=== PATIENT | female | born 1960 | race Caucasian/White ===

== ENCOUNTER 2016-12-24 06:14 | Day surgery (SDC) | payer MEDICAID ==
[~2016-12-24] VITALS: Ht 154.9 cm; Wt 75.7 kg
[2016-12-24] MEDS ORDERED: LISI5TAB18 PO (07:11)
[2016-12-24] MEDS ORDERED: GEMF600T5 PO (07:11)
[2016-12-24] MEDS ORDERED: METF850T PO (07:11)
[2016-12-24] MEDS ORDERED: fentaNYL 0.05 MG/ML VIAL ONE (07:24)
[2016-12-24] MEDS ORDERED: LIDOCAINE 2% 100 MG/5 ML UJET TP ONE (07:25)
[2016-12-24] MEDS ORDERED: MIDAZOLAM 2 MG/2 ML VIAL ONE (08:15)
[2016-12-24] MEDS ORDERED: EPINEPHrine PFS 0.1 MG/ML SYR IVP ONE (10:00)
[2016-12-24] MEDS ORDERED: MIDAZOLAM 2 MG/2 ML VIAL IVP ONE (10:05)
[2016-12-24] MEDS ORDERED: COMMUNICATION ORDER MC ONE (10:05)
[2016-12-24] MEDS ORDERED: fentaNYL 0.05 MG/ML VIAL IVP ONE (10:05)
[2016-12-24] MEDS ORDERED: [UNRECOGNIZED DRUG - SUPPLY] IV SCH (10:55)
== END 2016-12-24 10:35 | disposition home or self-care (01) ==
LOC: MMU 06:14 → MDS 06:14
PROVIDERS: ATTEND Internal Medicine Gastroenterology
DX: K63.5 Polyp of colon (principal); C18.7 Malignant neoplasm of sigmoid colon; E66.9 Obesity, unspecified; I10 Essential (primary) hypertension; E11.9 Type 2 diabetes mellitus without complications; E78.5 Hyperlipidemia, unspecified
CPT/HCPCS: 45381; 45385; 82948; 88305; J0171; J2250; J3010

== ENCOUNTER 2019-08-13 15:31 | Emergency (ER) | payer MEDICAID, SELFPAY ==
[~2019-08-13] VITALS: Ht 160 cm; Wt 76.2 kg
[~2019-08-13 15:31] MED LIST: GEMF600T5 PO; LISI5TAB18 PO; METF850T PO
[2019-08-13 15:37] VITALS: BP 110/65
--- NOTE | 2019-08-13 15:44 | NUR ---
C/O COUGH, BODYACHES, FATIGUE, FEVER, AND HEADACHE X YESTERDAY DENIES BEING AROUND PEOPLE KNOWN TO BE COVID-19 POSITIVE
--- NOTE | 2019-08-13 16:13 | NUR ---
COVID-19 SWAB COLLECTED
--- NOTE | 2019-08-13 16:13 | NUR ---
Patient discharged with v/s stable. Written and verbal after care instructions given and explained. Patient alert, oriented and verbalized understanding of instructions. Ambulatory with steady gait. All questions addressed prior to discharge. ID band removed. Patient advised to follow up with PMD. Rx of PROMETHAZINE/ZOFRAN/IBUPROFEN given. Patient educated on indication of medication including possible reaction and side effects. Opportunity to ask questions provided and answered.
[2019-08-13 16:14] VITALS: BP 110/65
== END 2019-08-13 16:13 | disposition home or self-care (01) ==
LOC: EEVIPCON 15:31 → MED 15:31
DX: B34.9 Viral infection, unspecified (principal); Z20.828 Contact with and (suspected) exposure to other viral communicable diseases; E11.9 Type 2 diabetes mellitus without complications; I10 Essential (primary) hypertension; E78.5 Hyperlipidemia, unspecified; Z90.49 Acquired absence of other specified parts of digestive tract; Z79.84 Long term (current) use of oral hypoglycemic drugs
CPT/HCPCS: 99283; U0003